=== PATIENT | male | born 2000 | race African-American/Black ===

== ENCOUNTER 2025-05-04 09:36 | Emergency (ER) | payer MEDICARE, OTHER ==
[~2025-05-04] VITALS: Ht 195.6 cm; Wt 87.0 kg
[2025-05-04 09:43] VITALS: O2SAT 98
[2025-05-04] MEDS: HYDROCODONE/ACETAMINOPHEN 5/325MG TABLET PO ONE (10:43)
[2025-05-04] MEDS: ONDANSETRON 4MG ODT PO ONE (10:43)
[2025-05-04] MEDS ORDERED: IBUP-1455 MT (12:07)
[2025-05-04] MEDS ORDERED: ACET-2708 MT (12:07)
[2025-05-04 12:49] VITALS: BP 130/77; PULSE 87; RESP 17; TEMP 36.7; O2SAT 99
== END 2025-05-04 12:52 | disposition home or self-care (01) ==
LOC: ER 09:36
DX: S00.83XA Contusion of other part of head, initial encounter (principal); J45.909 Unspecified asthma, uncomplicated; Y09 Assault by unspecified means; Y93.89 Activity, other specified; Y92.89 Other specified places as the place of occurrence of the external cause; Y99.8 Other external cause status
CPT/HCPCS: 99284; 70450; 70486; Q0162